=== PATIENT | female | born 1995 | race Caucasian/White ===

== ENCOUNTER 2016-12-18 05:13 | Inpatient (IN) ==
[2016-12-18] MEDS ORDERED: ZOFRAN IV PRN (05:16)
[2016-12-18] MEDS ORDERED: PEPCID PO PRN (05:16)
[2016-12-18] MEDS ORDERED: KEFZOL 1 GM/D5W 1 GM/50 ML IVPB IV PRN (05:16)
[2016-12-18] MEDS ORDERED: PEPCID IV PRN (05:16)
[2016-12-18] MEDS ORDERED: STADOL IV PRN (05:16)
[2016-12-18] MEDS ORDERED: TYLENOL PO PRN (05:16)
[2016-12-18] MEDS ORDERED: SODIUM CHLORIDE 0.9% INJ SCH (05:30)
[2016-12-18] MEDS: LR 1,000 ML IV SCH ×2 (05:57→08:42)
[2016-12-18 06:08] LABS: URINE SOURCE VOIDED
[2016-12-18 06:08] LABS: MANUAL DIFF NEEDED? NO
[2016-12-18 06:11] LABS: BASO% 0.2 % (0.0-0.8); EOS# 0.08 X1000 (0.0-0.7); EOS% 0.7 % (0.0-10.0); HEMOGLOBIN 11.8 g/dL (12.0-16.0); IMM GRAN# 0.03 X1000 (0.0-0.04); IMM GRAN% 0.3 % (0.0-0.5); LYMPH# 2.78 X1000 (1.2-3.4); LYMPH% 23.5 % (20.5-51.1); MCHC 34.7 g/dL (33-37); MCV 89.2 FL (81-99); MONO# 0.79 X1000 (0.11-0.59); MONO% 6.7 % (1.7-9.3); MPV 11.4 FL (7.4-10.4); NEUT% 68.6 % (42.2-75.2); PLT 148 X1000 (130-400); RBC 3.81 XMIL (4.2-5.4)
[2016-12-18 06:20] LABS: BILIRUBIN URINE NEGATIVE (NEGATIVE); BLOOD URINE NEGATIVE (NEGATIVE); CLARITY CLEAR (CLEAR); COLOR YELLOW; GLUCOSE URINE NEGATIVE (NEGATIVE); LEUKOCYTES URINE NEGATIVE (NEGATIVE); NITRITE URINE NEGATIVE (NEGATIVE); PROTEIN URINE NEGATIVE (NEGATIVE); UROBILINOGEN URINE NORMAL
[2016-12-18] MEDS ORDERED: PITOCIN 30 UNITS/LR 30 UNITS/500 ML IV.SOLN IV SCH (07:00)
[2016-12-18] MEDS ORDERED: MINERAL OIL PO ONE (08:27)
[2016-12-18] MEDS ORDERED: XYLOCAINE-MPF 1% INJ ONE (08:27)
[2016-12-18] MEDS ORDERED: NAROPIN 0.2% EPIDURAL PRN (08:34)
[2016-12-18] MEDS ORDERED: BENADRYL IV PRN (13:56)
[2016-12-18] MEDS ORDERED: AMBIEN PO PRN (13:56)
[2016-12-18] MEDS ORDERED: PERI MEDS (DERMOPLAST/NUPERCAINAL/TUCKS) MISC PRN (13:56)
[2016-12-18] MEDS ORDERED: XYLOCAINE-MPF 1% INJ PRN (13:56)
[2016-12-18] MEDS ORDERED: CYTOTEC PO PRN (13:56)
[2016-12-18] MEDS ORDERED: M-M-R II VACCINE SUBQ ONE (13:56)
[2016-12-18] MEDS ORDERED: BOOSTRIX VACCINE IM ONE (13:56)
[2016-12-18] MEDS ORDERED: PITOCIN 30 UNITS/LR 30 UNITS/500 ML IV.SOLN IV ONE (13:56)
[2016-12-18] MEDS ORDERED: HYDROXYZINE IM PRN (13:56)
[2016-12-18] MEDS ORDERED: BENADRYL PO PRN (13:56)
[2016-12-18] MEDS ORDERED: MINERAL OIL PO PRN (13:56)
[2016-12-18] MEDS ORDERED: PITOCIN IM PRN (13:56)
[2016-12-18] MEDS ORDERED: PITOCIN 20 UNITS/LR 20 UNITS/1,000 ML IV.SOLN IV SCH (13:56)
[2016-12-18] MEDS ORDERED: HYDROXYZINE PO PRN (13:56)
[2016-12-18] MEDS ORDERED: NORCO-5 PO PRN (13:56)
--- NOTE | 2016-12-18 14:12 | OPERATIVE NOTE ---
PROCEDURE DATE: 12/18/2016 DATE OF DELIVERY: 12/18/2016. PREDELIVERY DIAGNOSES: 1. Intrauterine at term. 2. Gestational diabetes, diet controlled. POSTDELIVERY DIAGNOSES: 1. Intrauterine at term. 2. Gestational diabetes, diet controlled. 3. Nuchal cord times one. PROCEDURE: Vaginal delivery. PHYSICIAN: Dr. Damir Dougherty. ANESTHESIA: Epidural with Dr. Liao. FINDINGS: Viable female . Do not have weight or Apgars at this time. Cord was 3 vessels. Placenta was spontaneous, intact. No lacerations or tears. Counts correct. DESCRIPTION OF PROCEDURE IN DETAIL: Ms. Cloud is a 21-year-old, 2, para 1, who presented this morning for labor induction. She was artificially ruptured, started on Pitocin, received epidural anesthesia and made steady progress throughout the morning becoming complete at approximately 12:30. She did not have the urge to push, so she was allowed to labor down and, when , she was put up in stirrups and prepped and draped. With the next contraction, pushed and delivered a viable female , occiput anterior, over an intact perineum. Once head delivered, shoulders, nuchal cord x1 was reduced and shoulders and rest of the body delivered without difficulty. The was placed on mother's abdomen. Cord was doubly clamped and cut. Care of was taken over by nursery personnel. A 3-vessel cord was verified. Then gentle traction resulted in delivery of the placenta after approximately 4 minutes; it was inspected and found to be intact. Then inspection of the perineum and vagina did not reveal any lacerations, tears or foreign material. ESTIMATED BLOOD LOSS: 100 mL. COUNTS: All counts correct. PLAN: Expect routine . cc: Damir Dougherty MD
[2016-12-18] MEDS: NORCO-10 PO PRN (17:41)
[2016-12-18] MEDS: PERICOLACE PO SCH (20:06)
[2016-12-19] MEDS: MOTRIN PO PRN ×2 (01:17→11:09)
[2016-12-19] MEDS: NORCO-10 PO PRN ×3 (04:55→16:58)
[2016-12-19 06:13] LABS: MANUAL DIFF NEEDED? NO
[2016-12-19 06:18] LABS: BASO% 0.2 % (0.0-0.8); EOS# 0.07 X1000 (0.0-0.7); EOS% 0.6 % (0.0-10.0); HEMATOCRIT 32.2 % (37.0-47.0); HEMOGLOBIN 10.8 g/dL (12.0-16.0); IMM GRAN# 0.03 X1000 (0.0-0.04); IMM GRAN% 0.3 % (0.0-0.5); LYMPH# 3.02 X1000 (1.2-3.4); LYMPH% 25.7 % (20.5-51.1); MCH 30.3 PG (27-31); MCHC 33.5 g/dL (33-37); MCV 90.4 FL (81-99); MONO# 0.69 X1000 (0.11-0.59); MONO% 5.9 % (1.7-9.3); MPV 11.4 FL (7.4-10.4); NEUT% 67.3 % (42.2-75.2); PLT 144 X1000 (130-400); RBC 3.56 XMIL (4.2-5.4)
[2016-12-19] MEDS: PRECARE PO SCH (08:51)
[2016-12-19] MEDS: PERICOLACE PO SCH (21:09)
[2016-12-20] MEDS: NORCO-10 PO PRN (04:51)
[2016-12-20] MEDS: MOTRIN PO PRN (04:51)
[2016-12-20 08:09] VITALS: BP 104/74
[2016-12-20] MEDS: PRECARE PO SCH (08:20)
== END 2016-12-20 12:20 | disposition home or self-care (01) ==
LOC: P.LD 05:13 → P.WC 18:05
PROVIDERS: ADMIT Obstetrics & Gynecology; ATTEND Obstetrics & Gynecology